=== PATIENT | female | born 1980 | race African-American/Black ===

== ENCOUNTER 2019-12-07 15:23 | Inpatient (IN) | payer SELFPAY ==
[~2019-12-07 15:23] MED LIST: Dexamethasone 20 MG/5 ML VIAL ONE; Glycopyrrolate 0.2 MG/ML 5 ML SYRINGE ONE; Iopamidol-370 76% 500 ML 1 ML ONE; Lidocaine 1% PF 5 ML VIAL ONE; Ondansetron PF 4 MG/2 ML Vial ONE; PROPOFOL 200 MG/20 ML VIAL ONE; Rocuronium Bromide 10 MG/ML (10ML VIAL) ONE; Succinylcholine Chloride 20 MG/ML 10 ml SYRINGE FS ONE
[2019-12-07] MEDS ORDERED: Piperacillin/Tazobactam 4.5 GM VIAL ONE (15:49)
[2019-12-07] MEDS ORDERED: Morphine 4 MG/ML VIAL ONE ×2 (15:49→18:01)
[2019-12-07 16:03] LABS: Hemoglobin 9.6 g/dL (12.0-16.0); Mean Corpuscular HGB CONC 30.3 g/dL (32.0-36.0); Mean Corpuscular Hemoglobin 24.8 pg (27.0-31.0); Mean Platelet Volume 7.5 fL (7.4-10.4); Platelet Count 436 thou/uL (130-400); RBC Distribution Width 17.1 % (11.5-14.5); Red Blood Cell (RBC) Count 3.87 mill/uL (4.20-5.40)
[2019-12-07 16:25] LABS: ALT (SGPT) 16 U/L (8-55); AST (SGOT) 17 U/L (5-34); Albumin 4.2 g/dL (3.5-5.0); Alkaline Phosphatase 75 U/L (40-110); Anion Gap 14 mmol/L (10-20); Anisocytosis SLIGHT = 6-15 cells (100X) (0-5/hpf); BUN (Urea Nitrogen) 10 mg/dL (7.0-18.7); Band 17 % (5-11); Bilirubin, Total 0.9 mg/dL (0.2-1.2); Calc. Creatinine Clearance 0 mL/min (70-130); Calcium 9.6 mg/dL (7.8-10.44); Carbon Dioxide 22 mmol/L (22-29); Chloride 104 mmol/L (98-107); Estimated GFR-MDRD Greater than 90; Glucose 105 mg/dL (70-105); Hypochromia SLIGHT = 6-15 cells (100X) (0-5/hpf); Lipase Less than 4 U/L (8-78); Lymphocytes 1 % (21-51); MDiff Complete? YES; Monocytes 2 % (0-10); Neutrophil 74 % (42-75); Platelet Morphology Comment Appears Increased; Polychromasia SLIGHT = 2-3 cells (100X) (0-2/hpf); Potassium 3.8 mmol/L (3.5-5.1); Protein, Total 8.2 g/dL (6.0-8.3); Reactive Lymphocytes 6 % (0-10); Sodium 136 mmol/L (136-145); Target Cells SLIGHT = 2-5 cells (100X) (0-1/hpf)
[2019-12-07 16:33] LABS: BHCG - Serum Negative (NEGATIVE); Pregs Control Background? CLEAR/WHITE (CLR/WHITE); Pregs Control Bar Appear? YES (CONTROL BAR)
[2019-12-07 16:39] LABS: Bacteria/HPF 4+ HPF (None Seen); Bilirubin Negative (Negative); Blood, Urine 2+ (Negative); Clarity Turbid (Clear); Glucose, Urine (Dipstick) Normal (Negative); Leukocyte 250 Leu/uL (Negative); Nitrite Negative (Negative); Protein, Urine (Dipstick) 50 mg/dL (Neg-Trace); RBC/HPF Greater than 50 HPF (0-3); Urobilinogen 3 mg/dL (Less than 2)
--- NOTE | 2019-12-07 17:54 | CT ---
CT ABDOMEN AND PELVIS WITH IV CONTRAST: 12/07/19 INDICATION: Pelvic pain. No comparison. FINDINGS: Images through the lung bases show mild atelectasis or infiltrate in the posterior right lung base. The liver, spleen, and pancreas unremarkable. Adrenal glands normal. Kidneys unremarkable. Urinary bladder mildly distended and unremarkable. Small bowel loops normal caliber. The appendix is mildly prominent measuring 11 to 12 mm diameter and there is enhancement of the appendiceal wall. No significant inflammatory change is seen although th e size and appearance is concerning for early appendicitis. Colon otherwise unremarkable. Images through the pelvis show prominent uterus. There is evidence of a fibroid extending off the fun dus of the uterus measuring in the 3.5 cm range. Both ovaries are prominent with bilateral ovarian fo llicles. Tiny amount of free fluid in the cul-de-sac. No adenopathy. IMPRESSION: 1. The appendix is mildly prominent measuring 11 to 12 mm diameter with enhancement of the appen diceal wall. No significant inflammatory change. Early appendicitis is not excluded and recommend cli nical correlation. 2. There is uterine fibroid and there are prominent bilateral ovarian follicles which could cont ribute to pelvic pain. The findings were discussed with Dr. Chaves at the time of dictation. Code CR POS: [id number]
[2019-12-07] MEDS ORDERED: Ketorolac Tromethamine 30 MG/ML VIAL ONE (18:01)
[2019-12-07] MEDS ORDERED: Lidocaine 1% w/Epinephrine 1:100K 20 ML VIAL ONE (18:30)
[2019-12-07] MEDS ORDERED: Bupivacaine 0.25% HCL 30 ML VIAL ONE (18:30)
[2019-12-07] MEDS ORDERED: Midazolam HCl 2 mg/2 ml Vial ONE (18:33)
[2019-12-07] MEDS ORDERED: HYDROmorphone 0.5 MG/0.5 ML SYRINGE ONE (18:33)
[2019-12-07] MEDS ORDERED: Fentanyl 100 MCG/2 ML VIAL ONE (18:33)
[2019-12-07] MEDS ORDERED: Lidocaine 2% Jelly 5 ML TUBE ONE (18:34)
--- NOTE | 2019-12-07 20:02 | HP ---
CHIEF COMPLAINT: Abdominal pain. HISTORY OF PRESENT ILLNESS: Ms. Bae is a 39-year-old woman with a 2-day history of pelvic pain, worse on the right than the left. It began gradually and has gotten steadily worse. She has also had multiple episodes of nausea and vomiting over the same time period. She did not note any fevers or chills at home, but did have a low-grade fever on arrival to the ER of 100.4. Movements and coughing make the pain worse. She has been having vaginal bleeding for the past week as well, that has been about a month since her last period, that this bleeding is a bit more prolonged than usual. No other vaginal discharge noted. PAST MEDICAL HISTORY: None. PAST SURGICAL HISTORY: Patient initially reported none but then reported tubal to RN. FAMILY HISTORY: Hypertension in her mother, diabetes in her sister, and breast cancer in a great aunt. SOCIAL HISTORY: She does not smoke, drink, or use illicit drugs. MEDICATIONS: None. ALLERGIES: NONE. PHYSICAL EXAMINATION: VITAL SIGNS: Temperature on arrival was 100.2 and is down to 99.3 currently. Heart rate was 135 on arrival and is down to 112. Blood pressure 135/90, respirations 20, and she is 99% saturated on room air. GENERAL: Reveals a healthy-appearing woman, in no acute distress. She is not flushed or toxic in appearance. She is not jaundiced or icteric. HEENT: Unremarkable. NECK: Supple without lymphadenopathy or thyroid nodules. HEART: Slightly tachycardic, but regular in its rate and rhythm without murmurs , rubs, or gallops. LUNGS: Clear to auscultation bilaterally. ABDOMEN: Soft and nondistended without palpable masses or hernias. She is diffusely tender to palpation, but worse in the right lower quadrant with some voluntary guarding. No rigidity or rebound, however. EXTREMITIES: Warm and well perfused without edema. NEURO: No focal deficits. PSYCHIATRIC: Alert, oriented, and appropriate. LABORATORY DATA: White count is elevated at 20,000 with a bandemia. Urinalysis was contaminated. Serum beta HCG is negative. Electrolytes are unremarkable, and LFTs are normal. IMAGING DATA: CT images are reviewed and I agree with the written report. The patient's appendix is prominent and enhancing. There is no significant periappendiceal stranding and no abscess. There is a small amount of free fluid in the pelvis and she has fibroids in her uterus and bilateral ovarian cysts. ASSESSMENT AND PLAN: Acute appendicitis. Although the ovarian cysts could explain some of her pelvic pain, they did not explain her fever, bandemia, and the right lower quadrant focal pain. I have recommended laparoscopic appendectomy for treatment. If the ovaries appear abnormal, then POLITICAL SCIENTIST will be consulted intraoperatively. However, I believe that this is likely related to the patient 's normal cycle. The procedure of laparoscopic appendectomy was discussed with the patient and its inherent risks were also discussed. These include, but are not limited to, bleeding, infection, risks of anesthesia, damage to nearby structures including bowel, blood vessels, and bladder, and need for open surgery or other procedures. She understands and accepts these risks and wishes to proceed. She understands that if the appendix is found to be perforated, then she will require inpatient admission for IV antibiotics. However, if no perforation is found, she will likely be able to be discharged postoperatively. She has received IV Zosyn in the emergency room. Job ID: [id number] [facility]
[2019-12-07] MEDS ORDERED: HYDROcodone/Acetaminophen 10/325 mg Tablet PO PRN (20:47)
[2019-12-07] MEDS ORDERED: Acetaminophen 325 MG TAB PO PRN (20:47)
[2019-12-07] MEDS ORDERED: Morphine 2 MG/ML SYRINGE SLOW IVP PRN (20:47)
[2019-12-07] MEDS ORDERED: hydrALAZINE 20 MG/ML VIAL SLOW IVP PRN (20:47)
[2019-12-07] MEDS ORDERED: Acetaminophen 650 MG Suppository PR PRN (20:47)
[2019-12-07] MEDS ORDERED: Dextrose 5% in Water 1,000 ML IV PRN (20:47)
[2019-12-07] MEDS ORDERED: Ondansetron PF 4 MG/2 ML Vial IVP PRN (20:47)
[2019-12-07] MEDS ORDERED: Promethazine HCl 25 MG/ML VIAL IM PRN ×2 (20:47→20:51)
[2019-12-07] MEDS ORDERED: Dextrose 50% Abboject 50 ML SYRINGE SLOW IVP PRN (20:47)
[2019-12-07] MEDS ORDERED: Ondansetron HCl/PF 4 MG/2 ML Vial IVP PRN (20:51)
[2019-12-07] MEDS ORDERED: Promethazine HCl 25 MG/ML VIAL SLOW IVP PRN (20:51)
[2019-12-07] MEDS ORDERED: HYDROmorphone 2 MG/ML VIAL SLOW IVP PRN (20:51)
[2019-12-07] MEDS ORDERED: cefOXitin 2 GM in Sodium Chloride 0.9% 100 ML IVPB SCH (21:00)
[2019-12-07] MEDS ORDERED: Promethazine HCl 25 MG/ML VIAL ONE (21:08)
[2019-12-07] MEDS: metroNIDAZOLE 500 MG in Premix Bag 1 BAG IVPB SCH (22:38)
[2019-12-07] MEDS: cefOXitin Sodium/Dextrose,Iso 2 GM in Premix Bag 1 BAG IVPB SCH (22:41)
[2019-12-07] MEDS: Doxycycline 100 MG CAP PO SCH (22:42)
[2019-12-07] MEDS: Famotidine/PF 20 mg/2ml Vial SLOW IVP SCH (22:42)
[2019-12-07] MEDS: Famotidine 20 MG TAB PO SCH (22:42)
[2019-12-07] MEDS: D5 1/2 NS w/20 mEq KCL 1,000 ML IV SCH (22:43)
[2019-12-07 23:26] VITALS: BMI 31.7
--- NOTE | 2019-12-07 23:26 | CON ---
DATE OF CONSULTATION: 12/07/2019 CONSULTING PHYSICIAN: Venancio Vicente MD. LOCATION OF CONSULT: Operating room D. I was called to the operating room by Dr. Vicente for assessment of possible right TOA. The patient was taken the operating room for appendicitis after inflamed appendix, elevated white count, and low-grade temperature was found in the emergency department. During the surgery. However, it was found that while the appendix was inflamed, the right tube was also inflamed and had pus around it and appeared enlarged. It was thought that rather than a primary appendicitis, that may be a primary TOA with secondary inflammation of the appendix. Upon my presentation, there was no longer any pus but the right fallopian tube was distorted and enlarged. The pus had been previously irrigated and sent for culture and the appendix was removed. I did not feel there was any need for further surgical intervention of her pelvic infection and recommended treatment inpatient with antibiotic therapy. I collected gonorrhea and chlamydia PCR while in the OR and sent that to the lab. I recommend cefoxitin and doxycycline IV and continue that until she has at least 24 hours sustained clinical improvement. Then she may be switched to oral doxycycline and flagyl for 14 days. I will follow up with the patient in the morning to answer any questions she may have. Job ID: [id number] [facility]
[2019-12-08] MEDS: cefOXitin Sodium/Dextrose,Iso 2 GM in Premix Bag 1 BAG IVPB SCH ×4 (03:21→20:55)
[2019-12-08] MEDS: HYDROcodone/Acetaminophen 10/325 mg Tablet PO PRN ×4 (05:06→21:33)
[2019-12-08] MEDS: metroNIDAZOLE 500 MG in Premix Bag 1 BAG IVPB SCH ×3 (05:07→20:55)
[2019-12-08 05:38] LABS: Anion Gap 10 mmol/L (10-20); BUN (Urea Nitrogen) 13 mg/dL (7.0-18.7); Calc. Creatinine Clearance 150 mL/min (70-130); Calcium 8.4 mg/dL (7.8-10.44); Carbon Dioxide 22 mmol/L (22-29); Chloride 107 mmol/L (98-107); Estimated GFR-MDRD Greater than 90; Glucose 128 mg/dL (70-105); Potassium 3.6 mmol/L (3.5-5.1); Sodium 135 mmol/L (136-145)
[2019-12-08 05:57] LABS: #Basophils 0.1 thou/uL (0.0-0.2); #Lymphocytes 0.5 thou/uL (1.20-3.40); #Monocytes 0.6 thou/uL (0.11-0.59); #Neutrophils 17.1 thou/uL (1.40-6.50); %Basophils 0.8 % (0.0-1.0); %Eosinophils 0.1 % (0.0-10.0); %Lymphocytes 2.9 % (21.0-51.0); %Monocytes 3.4 % (0.0-10.0); %Neutrophils 92.9 % (42.0-75.0); Hemoglobin 8.7 g/dL (12.0-16.0); Mean Corpuscular Volume 83.5 fL (78.0-98.0); Mean Platelet Volume 7.1 fL (7.4-10.4); Platelet Count 344 thou/uL (130-400); Red Blood Cell (RBC) Count 3.48 mill/uL (4.20-5.40); White Blood Cell (WBC) Count 18.4 thou/uL (4.8-10.8)
--- NOTE | 2019-12-08 07:26 | PDOC.BPN ---
- Brief Progress Note S: Patient doing well this morning, no complaints. O: Vital Signs - Most Recent Temp Pulse Resp BP Pulse Ox 98.0 F 80 16 106/69 95 12/08/19 03:11 12/08/19 03:11 12/08/19 03:11 12/08/19 03:11 12/08/19 03:11 Gen - AAO, NAD - flat affect Abd - obese, soft, ATTP A/P: I discussed the surgical findings with the patient and explained that it is possible that the appendicitis may have been secondary to the pelvic infection. I also discussed the plan of IV antibiotics until she has at least 24 hours sustained clinical improvement, at which point she may be switched to oral doxycycline and flagyl for 14 days and may follow up at [facility] [place]. She voiced understanding.
[2019-12-08] MEDS: D5 1/2 NS w/20 mEq KCL 1,000 ML IV SCH ×4 (07:37→23:01)
--- NOTE | 2019-12-08 09:48 | PDOC.OP ---
Operative Note - Operative Note Operative Note: PROCEDURE: Laparoscopic appendectomy. SURGEON: Venancio Vicente M.D. DATE OF PROCEDURE: 12/07/2019 PREOPERATIVE DIAGNOSIS: Appendicitis. POSTOPERATIVE DIAGNOSIS: Appendicitis, possibly secondary to purulent right salpingitis. HISTORY: 39-year-old woman who presented with signs and symptoms concerning for appendicitis. CT scan showed evidence of acute appendicitis and recommendation was made to proceed to the operating room. DESCRIPTION OF PROCEDURE: After informed consent was obtained and appropriate antibiotics continued, the patient was taken to the operating room and placed in the supine position and general endotracheal anesthesia was administered. The bladder was decompressed with a Rojas catheter and the abdomen was prepped and draped in the standard sterile fashion. Local anesthesia was infused to the skin and subcutaneous tissues superior to the umbilicus. A transverse skin incision was made and a Veress needle placed into the abdominal cavity and carbon dioxide gas insufflated without difficulty. Opening pressure was less than 5. Carbon dioxide gas was insufflated to an intra-abdominal pressure 15 and the patient tolerated this well. The Veress needle was withdrawn and a Tobin port advanced under direct laparoscopic vision into the abdominal cavity. Two additional ports were placed in the suprapubic and left lateral abdomen under direct laparoscopic vision after local anesthesia was infused at these sites. There were no significant adhesions. The appendix was identified and appeared inflamed but not perforated. The appendix was grasped by the mesoappendix and elevated. The mesoappendix was then sequentially ligated and divided down to the base of the appendix, which was normal in appearance and was clearly seen to be at the confluence of the tenia. Two Endoloops were placed around the base of the appendix and the appendix was divided between these Endoloops, placed into an EndoCatch bag and drawn out through the suprapubic incision. The suprapubic trocar was then replaced and the pelvis examined due to the ovarian cysts and fibroids seen on CT. The ovaries looked normal but the right fallopian tube appeared swollen and there was purulent fluid surrounding the right fallopian tube. Since there was no evidence of perforation on the appendix it was felt that this represented primary purulent salpingitis. Dr. Farmer of the PROCTOLOGIST service was consulted and she agreed with the assessment. Some of the purulent fluid was sent for Gram stain and culture. The pelvis was irrigated to clear. The appendiceal stump was examined and was clean. The suprapubic trocar was removed and the fascia closed under direct laparoscopic vision with a 0 Vicryl suture on a GraNee needle with excellent technical result. The left lateral trocar was then removed and hemostasis verified. Carbon dioxide gas was desufflated through the umbilical trocar which was then removed. The skin incisions were irrigated and additional local anesthesia infused at each site. The skin was closed with 4-0 subcuticular Monocryl sutures and Dermabond dressings were placed. Dr. Farmer sent a vaginal swab for GC and chlamydia and the patient was extubated and taken to the recovery room in good condition. Estimated blood loss was minimal. There were no complications. SPECIMENS: Appendix for pathology, pelvic fluid for Gram stain and culture, vaginal swab for GC and chlamydia.
--- NOTE | 2019-12-08 09:50 | PDOC.GSPN ---
Surgery Progress Note: Subj - Subjective Narrative: Patient feels much better this morning. Her pain and nausea have both improved. She is afebrile and her white count has diminished slightly. Abdominal tenderness has improved and her incisions look clean. I showed her her intraoperative pictures and explained the findings of purulent right salpingitis likely causing secondary inflammation of the appendix. Assessment/plan: Purulent right salpingitis likely causing secondary inflammation of the appendix. She is on antibiotics to cover both appendicitis and salpingitis. We will await improvement in her leukocytosis before transitioning her to oral antibiotics for 2 weeks per gynecology recommendations. Advance diet and activities as tolerated. Surgery Progress Note: Obj - Vital signs Vital signs: Vital Signs - Most Recent Temp Pulse Resp BP Pulse Ox 98.3 F 80 16 99/62 93 L 12/08/19 07:37 12/08/19 07:37 12/08/19 07:37 12/08/19 07:37 12/08/19 07:37 Surgery Progress Note: Results - Labs Result Diagrams: 12/08/19 05:01 12/08/19 05:01 Lab results: Laboratory Results - last 24 hr 12/08/19 12/08/19 05:01 05:01 WBC 18.4 H RBC 3.48 L Hgb 8.7 L Hct 29.1 L MCV 83.5 MCH 25.0 L MCHC 30.0 L RDW 17.0 H Plt Count 344 MPV 7.1 L Neutrophils % 92.9 H Lymphocytes % 2.9 L Monocytes % 3.4 Eosinophils % 0.1 Basophils % 0.8 Neutrophils # 17.1 H Lymphocytes # 0.5 L Monocytes # 0.6 H Eosinophils # 0.0 Basophils # 0.1 Sodium 135 L Potassium 3.6 Chloride 107 Carbon Dioxide 22 Anion Gap 10 BUN 13 Creatinine 0.76 Estimated GFR (MDRD) Greater than 90 Glucose 128 H Calcium 8.4
[2019-12-08] MEDS: Famotidine 20 MG TAB PO SCH ×2 (10:31→20:55)
[2019-12-08] MEDS: Enoxaparin Sodium 40 MG/0.4 ML SYRINGE SC SCH (10:31)
[2019-12-08] MEDS: Doxycycline 100 MG CAP PO SCH ×2 (10:51→20:55)
[2019-12-08] MEDS: Famotidine/PF 20 mg/2ml Vial SLOW IVP SCH ×2 (10:59→20:55)
--- NOTE | 2019-12-08 12:10 | EKG ---
Test Reason : Blood Pressure : / mmHG Vent. Rate : 122 BPM Atrial Rate : 122 BPM P-R Int : 130 ms QRS Dur : 078 ms QT Int : 286 ms P-R-T Axes : 039 062 268 degrees QTc Int : 407 ms Sinus tachycardia T wave abnormality, consider inferior ischemia T wave abnormality, consider anterolateral ischemia Abnormal ECG Confirmed by KADI LIMON ([id number]), fan mail editor JAC BE ([id number]) on 12/08/2019 12:10:40 PM Referred By: Confirmed By:KADI Ramos
[2019-12-09] MEDS: cefOXitin Sodium/Dextrose,Iso 2 GM in Premix Bag 1 BAG IVPB SCH ×2 (03:28→09:37)
[2019-12-09] MEDS: metroNIDAZOLE 500 MG in Premix Bag 1 BAG IVPB SCH (05:22)
[2019-12-09] MEDS: HYDROcodone/Acetaminophen 10/325 mg Tablet PO PRN (05:22)
[2019-12-09 09:00] LABS: Hemoglobin 8.1 g/dL (12.0-16.0); Mean Corpuscular HGB CONC 29.3 g/dL (32.0-36.0); Mean Corpuscular Hemoglobin 24.9 pg (27.0-31.0); Mean Platelet Volume 7.2 fL (7.4-10.4); Platelet Count 342 thou/uL (130-400); Red Blood Cell (RBC) Count 3.25 mill/uL (4.20-5.40); White Blood Cell (WBC) Count 9.1 thou/uL (4.8-10.8)
[2019-12-09 09:01] LABS: #Eosinphils 0.1 thou/uL (0.0-0.7); #Lymphocytes 1.3 thou/uL (1.20-3.40); #Monocytes 0.6 thou/uL (0.11-0.59); #Neutrophils 7.2 thou/uL (1.40-6.50); %Basophils 0.2 % (0.0-1.0); %Eosinophils 0.6 % (0.0-10.0); %Lymphocytes 13.7 % (21.0-51.0); %Monocytes 6.8 % (0.0-10.0); %Neutrophils 78.6 % (42.0-75.0)
[2019-12-09] MEDS ORDERED: Ibuprofen 600 MG TAB PO PRN (09:21)
[2019-12-09] MEDS ORDERED: Ibuprofen 200 MG TAB PO PRN ×2 (09:21→09:31)
[2019-12-09] MEDS ORDERED: Ibuprofen 800 MG TAB PO PRN (09:21)
[2019-12-09] MEDS ORDERED: Acetaminophen 325 MG TAB PO PRN ×2 (09:21)
[2019-12-09] MEDS ORDERED: HYDROcodone/Acetaminophen 5/325 mg Tablet PO PRN ×2 (09:22)
[2019-12-09] MEDS: Doxycycline 100 MG CAP PO SCH (09:37)
[2019-12-09] MEDS: Enoxaparin Sodium 40 MG/0.4 ML SYRINGE SC SCH (09:37)
[2019-12-09] MEDS: Famotidine/PF 20 mg/2ml Vial SLOW IVP SCH (09:38)
[2019-12-09] MEDS: Famotidine 20 MG TAB PO SCH (09:38)
[2019-12-09 09:47] LABS: Hypochromia SLIGHT = 6-15 cells (100X) (0-5/hpf); MDiff Complete? YES; Platelet Morphology Comment Appears Adequate; Polychromasia SLIGHT = 2-3 cells (100X) (0-2/hpf)
[2019-12-09 12:07] VITALS: BP 104/68; TEMP 97.9
--- NOTE | 2019-12-09 22:58 | DIS ---
DATE OF ADMISSION: 12/07/2019 DATE OF DISCHARGE: 12/09/2019 FINAL DIAGNOSES: 1. Purulent right salpingitis. 2. Appendicitis, possibly secondary to purulent right salpingitis. HISTORY: Ms. Bae is a 39-year-old woman, who presented with a 2-day history of right lower quadrant and pelvic pain. Her appendix looked dilated and enhancing on CT concerning for early appendicitis. She was also noted to have ovarian cyst and a fibroid uterus and some free-fluid in the pelvis. She was taken to the operating room, where she underwent laparoscopic appendectomy. The appendix appeared inflamed but not perforated. There was purulent fluid in the right adnexa and a swollen fallopian tube concerning for early tuboovarian abscess. Gynecology was consulted intraoperatively. They felt that she did have pelvic inflammatory disease and recommended treatment with antibiotics. Cultures were sent from the operating room and at the time of discharge were not showing any growth. GC and chlamydia were also pending. She was maintained on antibiotics postoperatively and rapidly improved in terms of her pain. She did not have any fevers and her white count normalized. Her diet was advanced and she had mostly just incisional pain by postoperative day 2, which was well controlled on oral antibiotics. She is being discharged home on a 2-week course of doxycycline and Flagyl with instructions to follow up in the [facility] and [facility] [place] in 2 weeks' time. Signs and symptoms of recurrent infection were discussed with the patient and she knows to call or return immediately if she develops fevers, chills, worsening abdominal or pelvic pain, redness, swelling, or drainage from any of her incisions or other concerns. DISCHARGE MEDICATIONS: Include ibuprofen and Tylenol as needed. She was given a prescription for doxycycline and Flagyl for 2 weeks and [facility] 5/325, #10 dispensed. Job ID: [id number]
[2019-12-10 22:56] LABS: Chlamydia by PCR Not Detected (NotDetected); GC by PCR DETECTED (NotDetected)
== END 2019-12-09 13:27 | disposition home or self-care (01) | DRG 343 ==
LOC: ERS 15:23 → SDC 19:18 → SURG B 22:13
PROVIDERS: ADMIT Surgery; ATTEND Surgery
PROC: 0DTJ4ZZ Resection of Appendix, Percutaneous Endoscopic Approach (ICD-10-PCS; principal; 2019-12-07)
DX: K37 Unspecified appendicitis (principal); N83.209 Unspecified ovarian cyst, unspecified side; D25.9 Leiomyoma of uterus, unspecified; D64.9 Anemia, unspecified; N70.93 Salpingitis and oophoritis, unspecified
CPT/HCPCS: 36415; 74177; 80048; 80053; 81003; 81015; 83605; 83690; 84703; 85025; 87040; 87070; 87077; 87086; 87186; 87205; 87491; 87591; 88304; 93005; 94760; 96365; 96375; 96376; J0694; J1100; J1170; J1650; J1885; J2001; J2250; J2270; J2405; J2543; J2550; J2704; J3010; J3480; J3490; Q9967; S0020; S0028